=== PATIENT | female | born 1960 | race Caucasian/White ===

== ENCOUNTER 2017-10-11 20:47 | Emergency (ER) | payer OTHER ==
[~2017-10-11] VITALS: Ht 157.4 cm; Wt 90.7 kg
[2017-10-11] MEDS ORDERED: Motrin,Rufen800 MG PO (22:40)
[2017-10-11] MEDS ORDERED: NORCO 5-325 TA1 EACH PO (22:40)
== END 2017-10-11 22:43 | disposition home or self-care (01) ==
LOC: ED 20:47
DX: S80.12XA Contusion of left lower leg, initial encounter (principal); S80.11XA Contusion of right lower leg, initial encounter; S30.0XXA Contusion of lower back and pelvis, initial encounter; V09.9XXA Pedestrian injured in unspecified transport accident, initial encounter; Y93.89 Activity, other specified; Y92.69 Other specified industrial and construction area as the place of occurrence of the external cause; Y99.9 Unspecified external cause status

== ENCOUNTER → 2018-03-08 | Outpatient (CLI) | payer OTHER ==
[~2018-03-08] MED LIST: Motrin,Rufen800 MG PO; NORCO 5-325 TA1 EACH PO
[2018-03-08 11:30] LABS: BASO % 0.7 % (0.0-1.0); EOS # 0.1 10*3/uL (0.0-0.4); EOS % 2.4 % (1.0-4.0); HEMATOCRIT 42.8 % (37.0-47.0); HEMOGLOBIN 14.3 g/dl (12.0-16.0); LYMPH # 2.3 10*3/uL (1.3-4.4); LYMPH % 39.6 % (27.0-41.0); MEAN CELL VOLUME 89.5 fl (81.0-99.0); MEAN CORPUSCULAR HGB 29.9 pg (27.0-31.0); MEAN CORPUSCULAR HGB CONC 33.4 g/dl (33.0-37.0); MEAN PLATELET VOLUME 11.7 fl (9.6-12.3); MONO # 0.3 10*3/uL (0.1-1.0); MONO % 5.8 % (3.0-9.0); NEUT % 51.2 % (47.0-73.0); PLATELET COUNT AUTOMATED 188 10*3/uL (130-400); RED BLOOD COUNT 4.78 10*6/uL (4.10-5.10); RED CELL DISTRI WIDTH 12.9 % (0-14.5); WHITE BLOOD COUNT 5.9 10*3/uL (4.8-10.8)
[2018-03-08 11:56] LABS: ALBUMIN 3.6 gm/dl (3.1-4.5); ALKALINE PHOSPHATASE 78 U/L (45-117); BUN 12 mg/dl (7-24); CHLORIDE 107 mmol/L (98-107); CHOLESTEROL 205 mg/dL (<200); CREATININE 0.81 mg/dL (0.55-1.02); HDL CHOLESTEROL 27 mg/dl (40-60); LDL CHOLESTEROL 142 mg/dL (9-159); POTASSIUM 4.3 mmol/L (3.5-5.1); SGOT/AST 14 IU/L (3-35); SGPT/ALT 21 U/L (12-78); SODIUM 140 mmol/L (136-145); TOTAL PROTEIN 6.9 gm/dL (6.4-8.2); TRIGLYCERIDES 179 mg/dl (<150); VLDL CHOLESTEROL 36 mg/dL (6-40)
== END | disposition home or self-care (01) ==
LOC: LAB 10:50
PROVIDERS: Student in an Organized Health Care Education/Training Program
DX: R07.9 Chest pain, unspecified (principal)

== ENCOUNTER → 2018-05-15 | Outpatient (CLI) | payer OTHER ==
[~2018-05-15] MED LIST changes: +AMOXICILLIN500 M2 PO
== END | disposition home or self-care (01) ==
LOC: MRI 13:34
DX: M47.896 Other spondylosis, lumbar region (principal); M51.26 Other intervertebral disc displacement, lumbar region; M12.88 Other specific arthropathies, not elsewhere classified, other specified site

== ENCOUNTER → 2019-02-18 | Outpatient (CLI) | payer OTHER | END | disposition home or self-care (01) | LOC: US 15:22 | DX: D36.7 Benign neoplasm of other specified sites (principal) ==

== ENCOUNTER → 2020-04-12 | Outpatient (CLI) | payer OTHER | END | disposition home or self-care (01) | LOC: MRI 00:34 | DX: M47.816 Spondylosis without myelopathy or radiculopathy, lumbar region (principal); M43.16 Spondylolisthesis, lumbar region; G95.9 Disease of spinal cord, unspecified ==

== ENCOUNTER 2024-05-13 20:11 | Emergency (ER) | payer OTHER ==
[~2024-05-13] VITALS: Ht 170.1 cm; Wt 86.6 kg
[2024-05-13 20:46] LABS: BASO % 0.4 % (0.0-1.0); EOS % 0.4 % (1.0-4.0); HEMATOCRIT 54.1 % (37.0-47.0); LYMPH # 1.6 10*3/uL (1.3-4.4); MEAN CELL VOLUME 87.1 fl (81.0-99.0); MEAN CORPUSCULAR HGB 28.8 pg (27.0-31.0); MEAN CORPUSCULAR HGB CONC 33.1 g/dl (33.0-37.0); MEAN PLATELET VOLUME 11.4 fl (9.6-12.3); MONO # 0.6 10*3/uL (0.1-1.0); MONO % 6.8 % (3.0-9.0); NEUT # 6.7 10*3/uL (2.3-7.9); PLATELET COUNT AUTOMATED 489 10*3/uL (130-400); RED BLOOD COUNT 6.21 10*6/uL (4.10-5.10); WHITE BLOOD COUNT 9.1 10*3/uL (4.8-10.8)
[2024-05-13 21:12] LABS: ALKALINE PHOSPHATASE 88 U/L (46-116); BUN 11 mg/dl (9-23); CHLORIDE 106 mmol/L (98-107); ETHYL ALCOHOL < 3.0 mg/dl (<3); POTASSIUM 3.8 mmol/L (3.4-5.1); SGPT/ALT 32 U/L (5-49)
[2024-05-13 22:18] LABS: BILIRUBIN Negative (Negative); BLOOD 1+ (Negative); CLARITY Cloudy (Clear); COLOR Dark Yellow (Yellow); GLUCOSE Negative (Negative); KETONE 4+ (Negative); LEUKO ESTERASE 2+ (Negative); NITRITE Negative (Negative); SPECIFIC GRAVITY 1.025 (1.001-1.030)
[2024-05-13 22:24] LABS: EPITHELIAL CELLS 21-30; WBC 41-50 wbc/hpf (0-5)
[2024-05-13 22:25] LABS: BACTERIA 1+; RBC 16-20 rbc/hpf (0-2)
[2024-05-13 22:26] LABS: URINE AMPHETAMINES Negative (1000ng/ml); URINE BARBITURATES Negative (200ng/ml); URINE BENZODIAZEPINES Negative (200ng/ml); URINE CANNABINOIDS (THC) Negative (50ng/ml); URINE COCAINE Negative (300ng/ml); URINE METHADONE Negative (300ng/ml); URINE OPIATES Negative (300ng/ml); URINE PHENCYCLIDINE Negative (25ng/ml)
[2024-05-13] MEDS ORDERED: Ciprofloxacin Hydrochloride 500 MG TAB PO ONE (22:30)
== END 2024-05-14 01:29 ==
LOC: ED 20:11
PROVIDERS: Internal Medicine
DX: F29 Unspecified psychosis not due to a substance or known physiological condition (principal); Z20.822 Contact with and (suspected) exposure to COVID-19; D75.1 Secondary polycythemia; N39.0 Urinary tract infection, site not specified; N18.32 Chronic kidney disease, stage 3b; Z79.899 Other long term (current) drug therapy

== ENCOUNTER 2024-09-15 14:52 | Inpatient (IN) | payer OTHER ==
[~2024-09-15] VITALS: Ht 157.5 cm; Wt 93.4 kg
[~2024-09-15 14:52] MED LIST changes: +DEXAMETHASONE6 MG PO; +PAXLOVID 300-11 EAC3 PO
[2024-09-15] MEDS ORDERED: LORazepam 1 MG TAB PO PRN (15:05)
[2024-09-15] MEDS ORDERED: Water, Sterile 10 ML VIAL IM PRN (15:15)
[2024-09-15 15:22] VITALS: BP 146/82
[2024-09-15] MEDS ORDERED: DEXAMETHASONE6 MG PO (15:43)
[2024-09-15] MEDS ORDERED: PAXLOVID 300-11 EAC3 PO (15:45)
[2024-09-15] MEDS ORDERED: Ziprasidone Mesylate 20 MG VIAL IM PRN (16:00)
[2024-09-15] MEDS ORDERED: ACETAMINOPHEN 325 MG TAB PO PRN (16:20)
[2024-09-15] MEDS ORDERED: Magnesium Hydroxide 30 ML UDC PO PRN (16:20)
[2024-09-15] MEDS ORDERED: MG-AL HYDROXIDE/SIMETICONE 30 ML UDC PO PRN (16:20)
[2024-09-15] MEDS ORDERED: Menthol/Zinc Oxide 4 GM THIN T PRN (16:20)
[2024-09-15 20:00] VITALS: BP 127/75
[2024-09-15 20:05] LABS: BILIRUBIN Negative (Negative); BLOOD 2+ (Negative); CLARITY Cloudy (Clear); COLOR Yellow (Yellow); GLUCOSE Negative (Negative); KETONE Trace (Negative); LEUKO ESTERASE 2+ (Negative); NITRITE Negative (Negative); PH 5.5 (4.5-8.0); SPECIFIC GRAVITY 1.025 (1.001-1.030); UROBILINOGEN 0.2 E.U./dl (0.0-1.0)
[2024-09-15 20:13] LABS: BACTERIA 2+; WBC 41-50 wbc/hpf (0-5)
[2024-09-16] MEDS ORDERED: Fosfomycin Tromethamine 3 GM PDS PO ONE (00:25)
[2024-09-16 06:38] LABS: BASO % 0.4 % (0.0-1.0); EOS # 0.1 10*3/uL (0.0-0.4); EOS % 1.1 % (1.0-4.0); HEMATOCRIT 47.5 % (37.0-47.0); MEAN CELL VOLUME 89.1 fl (81.0-99.0); MEAN CORPUSCULAR HGB 28.5 pg (27.0-31.0); MEAN PLATELET VOLUME 10.6 fl (9.6-12.3); MONO # 0.4 10*3/uL (0.1-1.0); MONO % 6.2 % (3.0-9.0); NEUT # 3.1 10*3/uL (2.3-7.9); NEUT % 54.3 % (47.0-73.0); PLATELET COUNT AUTOMATED 375 10*3/uL (130-400); RED BLOOD COUNT 5.33 10*6/uL (4.10-5.10); RED CELL DISTRI WIDTH 14.4 % (0-14.5); WHITE BLOOD COUNT 5.7 10*3/uL (4.8-10.8)
[2024-09-16 07:05] LABS: ALKALINE PHOSPHATASE 83 U/L (46-116); BUN 10 mg/dl (9-23); CHLORIDE 106 mmol/L (98-107); POTASSIUM 4.3 mmol/L (3.4-5.1); SGPT/ALT 18 U/L (5-49); TOTAL PROTEIN 6.8 gm/dL (6.0-8.0)
[2024-09-16 07:32] LABS: VITAMIN D, 25-HYDROXY 25.1 ng/mL (30-100)
[2024-09-16 08:00] VITALS: BP 109/72
[2024-09-16] MEDS ORDERED: PAXLOVID 300 MG PO SCH (09:00)
[2024-09-16] MEDS ORDERED: Paliperidone 6 MG TER PO SCH (09:00)
[2024-09-16] MEDS ORDERED: DEXAMETHASONE 4 MG TAB PO SCH (10:00)
[2024-09-16 20:00] VITALS: BP 140/87
[2024-09-16] MEDS ORDERED: RISPERIDONE 1 MG ODT BC SCH (21:00)
[2024-09-17 08:19] VITALS: BP 148/91
[2024-09-17 20:00] VITALS: BP 129/74
[2024-09-18 07:37] VITALS: BP 117/69
[2024-09-18] MEDS ORDERED: Cholecalciferol 2,000 UNIT TABLET (50 MCG) PO SCH (09:00)
[2024-09-18 20:00] VITALS: BP 133/73
[2024-09-18] MEDS ORDERED: GUAIFENESIN 600 MG TAB ER PO SCH (21:00)
[2024-09-19 07:56] VITALS: BP 131/87
[2024-09-19] MEDS ORDERED: RISPERIDONE 125 MG/0.35 ML SUSER.SYR SQ SCH (09:00)
[2024-09-19 20:00] VITALS: BP 129/78
[2024-09-20 08:03] VITALS: BP 140/83
[2024-09-20 20:00] VITALS: BP 128/70
[2024-09-20] MEDS ORDERED: FLUTICASONE PROPIONATE Nasal 16 Gm spray NAS SCH (21:00)
[2024-09-21 07:52] VITALS: BP 142/86
[2024-09-21 19:09] VITALS: BP 123/76
[2024-09-22 06:45] LABS: BASO % 0.1 % (0.0-1.0); EOS % 0.1 % (1.0-4.0); HEMATOCRIT 45.5 % (37.0-47.0); MEAN CELL VOLUME 88.5 fl (81.0-99.0); MEAN CORPUSCULAR HGB 28.6 pg (27.0-31.0); MEAN CORPUSCULAR HGB CONC 32.3 g/dl (33.0-37.0); MEAN PLATELET VOLUME 11.1 fl (9.6-12.3); MONO # 0.8 10*3/uL (0.1-1.0); NEUT # 11.1 10*3/uL (2.3-7.9); NEUT % 80.2 % (47.0-73.0); PLATELET COUNT AUTOMATED 500 10*3/uL (130-400); RED BLOOD COUNT 5.14 10*6/uL (4.10-5.10); RED CELL DISTRI WIDTH 14.6 % (0-14.5); WHITE BLOOD COUNT 13.9 10*3/uL (4.8-10.8)
[2024-09-22 07:16] LABS: ALKALINE PHOSPHATASE 69 U/L (46-116); BUN 13 mg/dl (9-23); CHLORIDE 104 mmol/L (98-107); POTASSIUM 4.5 mmol/L (3.4-5.1); SGPT/ALT 19 U/L (5-49); TOTAL PROTEIN 6.6 gm/dL (6.0-8.0)
[2024-09-22] MEDS ORDERED: RISPERIDONE 125 MG/0.35 ML SUSER.SYR SQ SCH (09:00)
[2024-09-22 20:00] VITALS: BP 125/70
[2024-09-22 22:05] LABS: BILIRUBIN Negative (Negative); BLOOD 1+ (Negative); CLARITY Clear (Clear); COLOR Yellow (Yellow); GLUCOSE 2+ (Negative); KETONE Trace (Negative); LEUKO ESTERASE Trace (Negative); NITRITE Negative (Negative); UROBILINOGEN 0.2 E.U./dl (0.0-1.0)
[2024-09-22 22:13] LABS: BACTERIA 1+
[2024-09-23 08:00] VITALS: BP 127/97
[2024-09-23 20:00] VITALS: BP 125/80
[2024-09-24 08:00] VITALS: BP 128/82; BP 134/64
[2024-09-24 20:00] VITALS: BP 126/85
[2024-09-25 08:00] VITALS: BP 123/73
[2024-09-25 20:00] VITALS: BP 115/83
[2024-09-26 08:00] VITALS: BP 142/98
[2024-09-26] MEDS ORDERED: RISPERIDONE 125 MG/0.35 ML SUSER.SYR SQ ONE (08:55)
[2024-09-26 20:00] VITALS: BP 122/67
[2024-09-27 07:49] VITALS: BP 131/75
[2024-09-27] MEDS ORDERED: GABAPENTIN 300 MG CAP PO SCH (12:20)
[2024-09-27 20:00] VITALS: BP 112/67
[2024-09-28 07:45] VITALS: BP 106/83
[2024-09-28 20:00] VITALS: BP 107/76
[2024-09-29 08:00] VITALS: BP 131/52
[2024-09-29 20:00] VITALS: BP 129/80
[2024-09-30 08:00] VITALS: BP 124/74
[2024-09-30 20:00] VITALS: BP 134/85
[2024-10-01 08:57] VITALS: BP 141/81
[2024-10-01] MEDS ORDERED: TUBERCULIN INTRADERM ONE (13:40)
[2024-10-01 20:00] VITALS: BP 144/84
[2024-10-02 08:00] VITALS: BP 110/55
[2024-10-02 20:00] VITALS: BP 126/85
[2024-10-03 08:00] VITALS: BP 136/92
[2024-10-03 09:30] LABS: BASO % 0.1 % (0.0-1.0); EOS # 0.1 10*3/uL (0.0-0.4); EOS % 0.6 % (1.0-4.0); HEMATOCRIT 43.5 % (37.0-47.0); MEAN CELL VOLUME 88.1 fl (81.0-99.0); MEAN CORPUSCULAR HGB 28.5 pg (27.0-31.0); MEAN CORPUSCULAR HGB CONC 32.4 g/dl (33.0-37.0); MEAN PLATELET VOLUME 11.2 fl (9.6-12.3); MONO # 0.5 10*3/uL (0.1-1.0); MONO % 5.9 % (3.0-9.0); NEUT # 6.4 10*3/uL (2.3-7.9); NEUT % 73.5 % (47.0-73.0); PLATELET COUNT AUTOMATED 296 10*3/uL (130-400); RED BLOOD COUNT 4.94 10*6/uL (4.10-5.10); RED CELL DISTRI WIDTH 15.1 % (0-14.5); WHITE BLOOD COUNT 8.8 10*3/uL (4.8-10.8)
[2024-10-03 10:17] LABS: ALKALINE PHOSPHATASE 83 U/L (46-116); BUN 8 mg/dl (9-23); CHLORIDE 104 mmol/L (98-107); POTASSIUM 3.8 mmol/L (3.4-5.1); SGPT/ALT 15 U/L (5-49)
[2024-10-03 20:00] VITALS: BP 138/88
[2024-10-04 08:03] VITALS: BP 95/53
[2024-10-04 20:00] VITALS: BP 121/65
[2024-10-05 08:29] VITALS: BP 132/92
[2024-10-05 20:00] VITALS: BP 141/90
[2024-10-06 08:29] VITALS: BP 140/86
[2024-10-06 20:00] VITALS: BP 140/84
[2024-10-07 08:00] VITALS: BP 131/90
[2024-10-07] MEDS ORDERED: RISPERIDONE 100 MG/0.28 ML SUSER.SYR SQ ONE (09:00)
[2024-10-07] MEDS ORDERED: hydrOXYzine pamoate 25 MG CAP PO PRN (12:55)
[2024-10-07] MEDS ORDERED: hydrOXYzine hydrochloride 50 MG/ML VIAL IM PRN (12:55)
[2024-10-07 20:00] VITALS: BP 147/88
[2024-10-08 08:27] VITALS: BP 113/86
[2024-10-08 20:00] VITALS: BP 121/84
[2024-10-09 08:41] VITALS: BP 153/62
[2024-10-09 20:00] VITALS: BP 130/78
[2024-10-10 08:00] VITALS: BP 123/73
[2024-10-10 18:43] VITALS: BP 136/86
[2024-10-11] MEDS ORDERED: TUBERCULIN INTRADERM SCH (06:00)
[2024-10-11 08:00] VITALS: BP 121/74
[2024-10-11 20:00] VITALS: BP 126/82
[2024-10-12 06:38] LABS: BASO % 0.5 % (0.0-1.0); EOS # 0.1 10*3/uL (0.0-0.4); EOS % 1.5 % (1.0-4.0); HEMATOCRIT 44.2 % (37.0-47.0); MEAN CELL VOLUME 88.2 fl (81.0-99.0); MEAN CORPUSCULAR HGB 28.7 pg (27.0-31.0); MEAN CORPUSCULAR HGB CONC 32.6 g/dl (33.0-37.0); MEAN PLATELET VOLUME 10.5 fl (9.6-12.3); MONO # 0.5 10*3/uL (0.1-1.0); MONO % 8.7 % (3.0-9.0); NEUT # 3.1 10*3/uL (2.3-7.9); NEUT % 53.4 % (47.0-73.0); PLATELET COUNT AUTOMATED 337 10*3/uL (130-400); RED BLOOD COUNT 5.01 10*6/uL (4.10-5.10); RED CELL DISTRI WIDTH 14.6 % (0-14.5); WHITE BLOOD COUNT 5.9 10*3/uL (4.8-10.8)
[2024-10-12 06:57] LABS: ALKALINE PHOSPHATASE 90 U/L (46-116); BUN 9 mg/dl (9-23); CHLORIDE 104 mmol/L (98-107); POTASSIUM 3.9 mmol/L (3.4-5.1); SGPT/ALT 11 U/L (5-49); TOTAL PROTEIN 6.6 gm/dL (6.0-8.0)
[2024-10-12 08:38] VITALS: BP 144/95
[2024-10-12 22:00] VITALS: BP 134/70
[2024-10-13 08:00] VITALS: BP 108/66
[2024-10-13] MEDS ORDERED: UZEDY250 MG/0.7 SQ (09:41)
[2024-10-24] MEDS ORDERED: RISPERIDONE 250 MG/0.7 ML SQ SCH (09:00)
[2024-10-24] MEDS ORDERED: RISPERIDONE 125 MG/0.35 ML SUSER.SYR SQ SCH (09:00)
== END 2024-10-13 13:42 | disposition home or self-care (01) | DRG 761 ==
LOC: 3N 14:52
PROVIDERS: Nurse Practitioner; Nurse Practitioner Women's Health; ADMIT Psychiatry & Neurology Psychiatry; ATTEND Psychiatry & Neurology Psychiatry
PROC: GZHZZZZ Group Psychotherapy (ICD-10-PCS; principal; 2024-09-17)
PROC: GZ51ZZZ Individual Psychotherapy, Behavioral (ICD-10-PCS; 2024-09-17)
PROC: 0HBRXZZ Excision of Toe Nail, External Approach (ICD-10-PCS; 2024-09-23)
PROC: 0HBRXZZ Excision of Toe Nail, External Approach (ICD-10-PCS; 2024-09-23)
PROC: 0HBRXZZ Excision of Toe Nail, External Approach (ICD-10-PCS; 2024-09-23)
PROC: 0HBRXZZ Excision of Toe Nail, External Approach (ICD-10-PCS; 2024-09-23)
PROC: 0HBRXZZ Excision of Toe Nail, External Approach (ICD-10-PCS; 2024-09-23)
PROC: 0HBRXZZ Excision of Toe Nail, External Approach (ICD-10-PCS; 2024-09-23)
PROC: 0HBRXZZ Excision of Toe Nail, External Approach (ICD-10-PCS; 2024-09-23)
PROC: 0HBRXZZ Excision of Toe Nail, External Approach (ICD-10-PCS; 2024-09-23)
PROC: 0HBRXZZ Excision of Toe Nail, External Approach (ICD-10-PCS; 2024-09-23)
PROC: 0HBRXZZ Excision of Toe Nail, External Approach (ICD-10-PCS; 2024-09-23)
DX: F25.0 Schizoaffective disorder, bipolar type (principal); U07.1 COVID-19; F22 Delusional disorders; M50.30 Other cervical disc degeneration, unspecified cervical region; B35.1 Tinea unguium; K76.0 Fatty (change of) liver, not elsewhere classified; D64.9 Anemia, unspecified; Z98.891 History of uterine scar from previous surgery; Z82.49 Family history of ischemic heart disease and other diseases of the circulatory system; Z83.3 Family history of diabetes mellitus

== ENCOUNTER 2024-11-05 10:52 | Emergency (ER) | payer OTHER ==
[~2024-11-05] VITALS: Ht 157.4 cm; Wt 105.6 kg
[~2024-11-05 10:52] MED LIST changes: +UZEDY250 MG/0.7 SQ
[2024-11-05 10:57] VITALS: BP 129/83
[2024-11-05 11:30] LABS: BASO % 0.5 % (0.0-1.0); EOS # 0.1 10*3/uL (0.0-0.4); EOS % 1.4 % (1.0-4.0); HEMATOCRIT 43.2 % (37.0-47.0); MEAN CELL VOLUME 89.6 fl (81.0-99.0); MEAN CORPUSCULAR HGB 28.8 pg (27.0-31.0); MEAN CORPUSCULAR HGB CONC 32.2 g/dl (33.0-37.0); MEAN PLATELET VOLUME 10.4 fl (9.6-12.3); MONO # 0.4 10*3/uL (0.1-1.0); MONO % 6.2 % (3.0-9.0); NEUT # 4.3 10*3/uL (2.3-7.9); NEUT % 69.1 % (47.0-73.0); PLATELET COUNT AUTOMATED 350 10*3/uL (130-400); RED BLOOD COUNT 4.82 10*6/uL (4.10-5.10); RED CELL DISTRI WIDTH 14.9 % (0-14.5); WHITE BLOOD COUNT 6.3 10*3/uL (4.8-10.8)
[2024-11-05 11:42] LABS: ACT PARTIAL THROMBO TIME 30.5 SECONDS (20.0-32.1)
[2024-11-05 11:51] LABS: BILIRUBIN Negative (Negative); BLOOD Trace-Lysed (Negative); CLARITY Clear (Clear); COLOR Yellow (Yellow); GLUCOSE Negative (Negative); KETONE Negative (Negative); LEUKO ESTERASE 2+ (Negative); NITRITE Negative (Negative); SPECIFIC GRAVITY 1.025 (1.001-1.030); UROBILINOGEN 0.2 E.U./dl (0.0-1.0)
[2024-11-05 11:53] LABS: ALKALINE PHOSPHATASE 70 U/L (46-116); BUN 6 mg/dl (9-23); CHLORIDE 104 mmol/L (98-107); CPK 48 U/L (34-171); POTASSIUM 3.8 mmol/L (3.4-5.1); SGPT/ALT 9 U/L (5-49); TOTAL PROTEIN 6.5 gm/dL (6.0-8.0)
[2024-11-05 11:57] LABS: URINE AMPHETAMINES Negative (1000ng/ml); URINE BARBITURATES Negative (200ng/ml); URINE BENZODIAZEPINES Negative (200ng/ml); URINE CANNABINOIDS (THC) Negative (50ng/ml); URINE COCAINE Negative (300ng/ml); URINE METHADONE Negative (300ng/ml); URINE OPIATES Negative (300ng/ml); URINE PHENCYCLIDINE Negative (25ng/ml)
[2024-11-05 11:59] LABS: ETHYL ALCOHOL < 3.0 mg/dl (<3)
[2024-11-05 12:15] LABS: MUCOUS TRACE; WBC 21-30 wbc/hpf (0-5)
== END 2024-11-05 13:31 | disposition home or self-care (01) ==
LOC: ED 10:52 → EDHOLD 15:40 → ED 15:40
PROVIDERS: Internal Medicine
DX: M79.605 Pain in left leg (principal); M79.604 Pain in right leg; R39.198 Other difficulties with micturition; Z59.00 Homelessness unspecified; Z79.899 Other long term (current) drug therapy; Z98.890 Other specified postprocedural states

== ENCOUNTER → 2024-11-28 | Outpatient (CLI) | payer OTHER ==
[2024-11-28 13:10] LABS: BASO % 0.3 % (0.0-1.0); EOS # 0.1 10*3/uL (0.0-0.4); EOS % 0.9 % (1.0-4.0); HEMATOCRIT 46.6 % (37.0-47.0); MEAN CELL VOLUME 89.6 fl (81.0-99.0); MEAN CORPUSCULAR HGB 28.5 pg (27.0-31.0); MEAN CORPUSCULAR HGB CONC 31.8 g/dl (33.0-37.0); MEAN PLATELET VOLUME 10.9 fl (9.6-12.3); MONO # 0.4 10*3/uL (0.1-1.0); MONO % 5.4 % (3.0-9.0); NEUT # 4.2 10*3/uL (2.3-7.9); NEUT % 64.6 % (47.0-73.0); PLATELET COUNT AUTOMATED 361 10*3/uL (130-400); RED CELL DISTRI WIDTH 14.8 % (0-14.5); WHITE BLOOD COUNT 6.5 10*3/uL (4.8-10.8)
[2024-11-28 13:52] LABS: ALKALINE PHOSPHATASE 67 U/L (46-116); BUN 7 mg/dl (9-23); CHLORIDE 104 mmol/L (98-107); POTASSIUM 4.2 mmol/L (3.4-5.1); SGPT/ALT 16 U/L (5-49); TOTAL PROTEIN 6.7 gm/dL (6.0-8.0)
== END | disposition home or self-care (01) ==
LOC: LAB 12:21
PROVIDERS: Student in an Organized Health Care Education/Training Program; ATTEND Family Medicine
DX: R60.0 Localized edema (principal)

== ENCOUNTER → 2024-12-12 | Outpatient (CLI) | payer OTHER | END | disposition home or self-care (01) | LOC: US 12-08 03:29 | PROVIDERS: ATTEND Student in an Organized Health Care Education/Training Program | DX: R60.0 Localized edema (principal) ==